=== PATIENT | female | born 1990 | race Caucasian/White ===

== ENCOUNTER 2018-06-14 17:57 | Emergency (ER) | payer MEDICARE, OTHER ==
[~2018-06-14 17:57] MED LIST: PREN1TAB52 PO
== END 2018-06-14 20:27 | disposition left against medical advice (07) ==
LOC: EMS 17:58
DX: R30.9 Painful micturition, unspecified (principal); Z53.21 Procedure and treatment not carried out due to patient leaving prior to being seen by health care provider